=== PATIENT | male | born 1980 | race Caucasian/White ===

== ENCOUNTER 2018-06-09 19:30 | Emergency (ER) | payer SELFPAY ==
[2018-06-09 20:42] VITALS: BP 112/73
--- NOTE | 2018-06-09 23:56 | ER Document Report ---
HPI - HPI Patient complains to provider of: right shoulder pain Time Seen by Provider: 06/09/18 23:03 Pain Level: 1 Context: Patient is a 37-year-old male presents the emergency department complaining of right shoulder pain. Patient states he was admitted at this facility over for an infection in his right shoulder with which he states went into his bone. Patient states he had surgery on his right shoulder during that time. Patient does have a PICC line in place the left upper extremity. Patient states he was getting IV antibiotics but has not gotten IV antibiotics for the last 4 days. Patient states "I did not think I needed them anymore." Patient states he has also taken out the carlos from his wound on his right shoulder. Patient states he took the carlos out on his own 2 days ago. Patient is complaining of pain to the right shoulder and generalized back pain. Patient denies any fall or new trauma. Patient is unable to tell me the surgeon that performed his surgery or where he goes for his PICC line antibiotics. Patient is adamant that he was admitted at this facility and is treated at "some surgery place" for his PICC line antibiotics. Patient is unable to tell me the name of who put in his PICC line , his surgeon's name, any provider he saw him in the emergency room, or where he gets his PICC line antibiotics. Patient is otherwise conscious alert and oriented to person, place, current events, current date. Past medical history: None medications: None Allergies: None - REPRODUCTIVE Reproductive: DENIES: : Past Medical History - General Information source: Patient - Social History Smoking Status: Current Every Day Smoker Chew tobacco use (# tins/day): No Frequency of alcohol use: None Drug Abuse: None Family History: Reviewed & Not Pertinent, CAD, Hyperlipidemia, Hypertension, Malignancy Patient has suicidal ideation: No Patient has homicidal ideation: No Renal/ Medical History: Denies: Hx Peritoneal Dialysis Musculoskeletal Medical History: Reports Hx Musculoskeletal Deformity, Reports Hx Musculoskeletal Trauma - Immunizations Immunizations up to date: Yes Hx Diphtheria, Pertussis, Tetanus Vaccination: Yes Vertical Provider Document - CONSTITUTIONAL Agree With Documented VS: Yes Notes: GENERAL: Alert, interacts well. No acute distress. HEAD: Normocephalic, atraumatic. EYES: Pupils equal, round, and reactive to light. Extraocular movements intact. ENT: Oral mucosa moist, tongue midline. NECK: Full range of motion. Supple. Trachea midline. LUNGS: Clear to auscultation bilaterally, no wheezes, rales, or rhonchi. No respiratory distress. HEART: Regular rate and rhythm. No murmur ABDOMEN: Soft, non-tender. Non-distended. Bowel sounds present in all 4 quadrants. EXTREMITIES: Moves all 4 extremities spontaneously. No edema, normal radial and dorsalis pedis pulses bilaterally. No cyanosis. Patient has a well appearing healing scar noted over his right clavicle region. no fluctuance or indurated areas noted. Minor erythema noted at the site. Patient refuses to move his right shoulder because "it hurts like a bitch." BACK: no cervical, thoracic, lumbar midline tenderness. No saddle anesthesia, normal distal neurovascular exam. NEUROLOGICAL: Alert and oriented x3. Normal speech. PSYCH: Normal affect, normal mood. SKIN: Warm, dry, normal turgor. - INFECTION CONTROL TRAVEL OUTSIDE OF THE [place] IN LAST 30 DAYS: No Course - Re-evaluation Re-evalutation: Initially I tried to review patient's past visits to the emergency room. According to the name and date of currently in the computer the patient had not been to this facility since 2015. I went in to talk to the patient to make sure he was admitted to this hospital. Patient stated he was [facility] to [facility]. He continues to state he cannot remember the name of his surgeon or where he goes for his IV antibiotics. At that time patient asked if I was going to give him any pain medication. I discussed with the patient I needed to review his past visits and see what antibiotics he was on first. Discussed With patient registration the fact that patient states he was admitted to this facility over but there are no reports in the computer. Patient registration States when the patient came to the emergency room via EMS she was able to cut off his old hospital band. His old hospital band was noted to have the first name of Daquan and the date of of 12/06/1979. When looking up the patient Daquan Andrew with a date of 12/06/1979 it was found patient was admitted to this facility on 05/[address] Dr[address] Sánchez was consulted. It was also documented that patient had been to the surgery center for his PICC line antibiotics today. It was noted pt is under the care of Dong Mead. I then went in to the patient room Angela Gatica RN with me, asked him what his first and last name was and his date of . He told me his name was Scar Andrew and his date of was 1980. I then stated his records show that he was treated with IV antibiotics today. Patient states "you're a fucking liar!" I then told the patient I would not be giving him any pain medication because he had initially lied to staff. Patient then got up off the bed continued to curse and walked out the door. Security was in the emergency room and followed the patient as he walked out the front doors. - Vital Signs Vital signs: Temp Pulse Resp BP Pulse Ox 97.6 F 92 18 112/73 98 06/09/18 20:38 06/09/18 20:38 06/09/18 20:38 06/09/18 20:38 06/09/18 20:38 Discharge - Discharge Disposition: ELOPED
== END 2018-06-09 23:25 | disposition left against medical advice (07) ==
LOC: ER 19:30
DX: Z53.21 Procedure and treatment not carried out due to patient leaving prior to being seen by health care provider (principal); M25.511 Pain in right shoulder; F17.200 Nicotine dependence, unspecified, uncomplicated
CPT/HCPCS: 99281